=== PATIENT | male | born 1980 ===

== ENCOUNTER 2017-05-26 19:13 | Emergency (ER) | payer OTHER ==
[2017-05-26 19:24] VITALS: BP 130/83
--- NOTE | 2017-05-26 19:45 | ED PDOC ---
Arrival/HPI - General Historian: Patient <Jeanette Felix A - Last Filed: 05/26/17 20:40> <Cezar Hitchcock - Last Filed: 05/26/17 20:47> - General Chief Complaint: Rib Injury Time Seen by Provider: 05/26/17 19:31 - History of Present Illness Narrative History of Present Illness (Text): 05/26/17 19:39 37yo male present with complaint of left sided ribs pain s/p trauma this evening. States he slipped while taking a shower and hit left lateral ribs on a shower tub. Notes pain iwth deep inspiration. Denies hitting head anywhere. Denies LOC, dizziness, chest pain, focal weakness, any other complaint. (Jeanette Felix A) Past Medical History - Provider Review Nursing Documentation Reviewed: Yes - Psychiatric Hx Psychophysiologic Disorder: No Hx Substance Use: No <Jeanette Felix A - Last Filed: 05/26/17 20:40> Family/Social History - Physician Review Nursing Documentation Reviewed: Yes Family/Social History: Unknown Family HX Smoking Status: Never Smoked Hx Alcohol Use: Yes Frequency of alcohol use: Socially Hx Substance Use: No <Jeanette Felix A - Last Filed: 05/26/17 20:40> Allergies/Home Meds <Jeanette Felix A - Last Filed: 05/26/17 20:40> <Cezar Hitchcock - Last Filed: 05/26/17 20:47> Allergies/Adverse Reactions: Allergies No Known Allergies Allergy (Verified 05/26/17 19:20) Review of Systems - Physician Review All systems were reviewed & negative as marked: Yes - Review of Systems Constitutional: Normal Eyes: Normal ENT: Normal Respiratory: Normal Cardiovascular: Normal Gastrointestinal: Normal Genitourinary Male: Normal Musculoskeletal: Normal, Arthralgias (LEft ribs pain) Skin: Normal Neurological: Normal Endocrine: Normal Hemo/Lymphatic: Normal Psychiatric: Normal <Jeanette Felix A - Last Filed: 05/26/17 20:40> Physical Exam Vital Signs Reviewed: Yes Temperature: Afebrile Blood Pressure: Normal Pulse: Regular Respiratory Rate: Normal Appearance: Positive for: Well-Appearing, Non-Toxic, Comfortable Pain Distress: None Mental Status: Positive for: Alert and Oriented X 3 - Systems Exam Head: Present: Atraumatic, Normocephalic Pupils: Present: PERRL Extroacular Muscles: Present: EOMI Conjunctiva: Present: Normal Mouth: Present: Moist Mucous Membranes Neck: Present: Normal Range of Motion Respiratory/Chest: Present: Clear to Auscultation, Good Air Exchange, Tender to Palpation (Left lateral ribs tenderness). No: Respiratory Distress, Accessory Muscle Use, Wheezes, Decreased Breath Sounds, Rales, Retracting, Rhonchi, Tachypneic Cardiovascular: Present: Regular Rate and Rhythm, Normal S1, S2. No: Murmurs Abdomen: Present: Normal Bowel Sounds. No: Tenderness, Distention, Peritoneal Signs Back: Present: Normal Inspection Upper Extremity: Present: Normal Inspection. No: Cyanosis, Edema Lower Extremity: Present: Normal Inspection. No: Edema Neurological: Present: GCS=15, CN II-XII Intact, Speech Normal Skin: Present: Warm, Dry, Normal Color. No: Rashes Psychiatric: Present: Alert, Oriented x 3, Normal Insight, Normal Concentration <Jeanette Felix A - Last Filed: 05/26/17 20:40> Vital Signs Temp Pulse Resp BP Pulse Ox 05/26/17 20:20 98.5 F 79 18 99 05/26/17 19:20 98.7 F 76 16 130/83 98 Medical Decision Making <Jeanette Felix - Last Filed: 05/26/17 20:40> <Cezar Hitchcock - Last Filed: 05/26/17 20:47> ED Course and Treatment: 05/26/17 20:40 Lung was CTA b/l CXR/Ribs - No PTX. No fracture noted Result was DW the pt. He will be DC home with Naprosyn and percocet rx. Referred to his PMD. TRT ED for any new or worsening symptoms. (Jeanette Felix A) - RAD Interpretation Radiology Orders: 05/26/17 19:39 RIBS LEFT & PA CHEST [RAD] Stat - Medication Orders Current Medication Orders: Discontinued Medications Ketorolac Tromethamine (Toradol) 60 mg IM STAT STA Stop: 05/26/17 19:49 Last Admin: 05/26/17 20:17 Dose: Not Given Non-Admin Reason: Patient Refused - PA / WO[employer]ARK[employer] / Resident Statement MD/DO has reviewed & agrees with the documentation as recorded. <Cezar Hitchcock - Last Filed: 05/26/17 20:47> Disposition/Present on Arrival - Present on Arrival Any Indicators Present on Arrival: No History of DVT/PE: No History of Uncontrolled Diabetes: No Urinary Catheter: No History of Decub. Ulcer: No History Surgical Site Infection Following: None - Disposition Have Diagnosis and Disposition been Completed?: Yes Disposition Time: 20:45 Patient Plan: Discharge <Jeanette Felix - Last Filed: 05/26/17 20:40> <Cezar Hitchcock - Last Filed: 05/26/17 20:47> - Disposition Diagnosis: Rib contusion Disposition: HOME/ ROUTINE Condition: STABLE Discharge Instructions (ExitCare): Rib Contusion (ED) Additional Instructions: Follow up with your doctor Return to ED for any new or worsening symptoms Prescriptions: Naproxen [Naprosyn] 500 mg PO BID #20 tab oxyCODONE/Acetaminophen [Percocet 5/325 mg Tab] 1 ea PO Q6 #5 tab Ref[place] [facility] [place] [facility] [place] - Follow up with primary Forms: [employer] (Persian)
[2017-05-26 20:20] VITALS: TEMP 98.5
[2017-05-26 21:27] VITALS: PULSE 88; RESP 20; O2SAT 98
--- NOTE | 2017-05-27 08:36 | RAD ---
PROCEDURE: Radiographs of the Chest and Left Ribs. HISTORY: ribs pain COMPARISON: None available. TECHNIQUE: Frontal radiograph of the chest and multiple oblique radiographs of the left ribs were obtained. FINDINGS: LEFT RIBS: No fracture or focal lesion visualized. LUNGS: Clear. PLEURA: No pneumothorax or pleural fluid. CARDIOVASCULAR: Normal sized heart. No pulmonary vascular congestion. OTHER FINDINGS: None. IMPRESSION: Unremarkable radiographs of the chest and left ribs. No left rib fracture.
== END 2017-05-26 21:27 | disposition home or self-care (01) ==
LOC: ED 19:13
DX: S20.212A Contusion of left front wall of thorax, initial encounter (principal); W22.8XXA Striking against or struck by other objects, initial encounter; Y93.E1 Activity, personal bathing and showering